=== PATIENT | female | born 1970 | race African-American/Black ===

== ENCOUNTER 2021-01-17 07:45 | Emergency (ER) | payer MEDICAID, OTHER ==
[~2021-01-17] VITALS: Ht 170.2 cm; Wt 55.0 kg
[2021-01-17] MEDS ORDERED: CEPH500C2 MT (08:20)
[2021-01-17] MEDS ORDERED: PHEN-815 MT (08:20)
[2021-01-17] MEDS ORDERED: IBUPROFEN 600MG TABLET PO ONE (08:45)
[2021-01-17 08:59] VITALS: BP 108/40
[2021-01-17 09:30] LABS: CLARITY URINE CLOUDY (CLEAR); COLOR URINE YELLOW (YELLOW); KETONES URINE NEGATIVE (NEGATIVE); LEUKOCYTE ESTERASE URINE 3+ (NEGATIVE); NITRITE URINE NEGATIVE (NEGATIVE); OCCULT BLOOD URINE 2+ (NEGATIVE); PH URINE >=9.0 (4.5-8.0); PROTEIN URINE 1+ (NEGATIVE); SPECIFIC GRAVITY URINE 1.015 (1.005-1.030)
== END 2021-01-17 09:42 | disposition home or self-care (01) ==
LOC: ER 07:45
DX: N39.0 Urinary tract infection, site not specified (principal)
CPT/HCPCS: 81003; 99283

== ENCOUNTER 2021-02-23 18:28 | Emergency (ER) | payer MEDICAID ==
[~2021-02-23] VITALS: Ht 170.2 cm; Wt 56.0 kg
[~2021-02-23 18:28] MED LIST: CEPH500C2 MT; PHEN-815 MT
[2021-02-23 18:31] VITALS: BP 112/77
== END 2021-02-23 18:58 | disposition left against medical advice (07) ==
LOC: ER 18:28
DX: Z53.21 Procedure and treatment not carried out due to patient leaving prior to being seen by health care provider (principal)

== ENCOUNTER 2021-03-18 23:21 | Emergency (ER) | payer MEDICAID, OTHER ==
[~2021-03-18] VITALS: Ht 167.6 cm; Wt 57.0 kg
[2021-03-19] MEDS ORDERED: FLUORESCEIN SODIUM 1MG/STRIP LEFTEYE ONE (01:15)
[2021-03-19] MEDS ORDERED: TETANUS, DIPHTHERIA, PERTUSSIS VAC/PF 0.5ML (>10YR OLD) IM ONE (01:15)
[2021-03-19] MEDS ORDERED: TETRACAINE 0.5% OPHTH DROPS 4ML LEFTEYE ONE (01:15)
[2021-03-19] MEDS ORDERED: ACETAMINOPHEN 325MG TABLET PO ONE (02:00)
[2021-03-19] MEDS ORDERED: SULF15DR26 RIGHTEYE (04:17)
[2021-03-19] MEDS ORDERED: ACET-2708 MT (04:17)
[2021-03-19 04:43] VITALS: BP 138/78
== END 2021-03-19 04:45 ==
LOC: ER 23:21
DX: S92.352A Displaced fracture of fifth metatarsal bone, left foot, initial encounter for closed fracture (principal); S05.31XA Ocular laceration without prolapse or loss of intraocular tissue, right eye, initial encounter; H11.31 Conjunctival hemorrhage, right eye; Z79.899 Other long term (current) drug therapy; V49.88XA Car occupant (driver) (passenger) injured in other specified transport accidents, initial encounter; Y93.89 Activity, other specified; Y92.89 Other specified places as the place of occurrence of the external cause; Y99.8 Other external cause status
CPT/HCPCS: 70486; 73630; 90471; 90715; 99285

== ENCOUNTER 2025-03-26 10:51 | Emergency (ER) | payer MEDICAID, OTHER ==
[~2025-03-26] VITALS: Ht 172.7 cm; Wt 70.0 kg
[~2025-03-26 10:51] MED LIST changes: +ACET-2708 MT; +SULF15DR26 RIGHTEYE
[2025-03-26 10:56] VITALS: O2SAT 100
[2025-03-26 12:57] LABS: BASOPHILS % 0.9 % (0.0-2.0); EOSINOPHILS % 0.2 % (0.0-5.0); HEMATOCRIT. 36.5 % (36.0-48.0); HEMOGLOBIN. 11.9 g/dL (12.0-16.0); LYMPHOCYTES % 55.4 % (20.0-50.0); MEAN PLATELET VOLUME 7.4 fl (7.4-10.4); MONOCYTES % 4.9 % (2.0-8.0); NEUTROPHILS % 38.6 % (40.0-76.0); PLATELET 418 x1000/uL (130-400); RED BLOOD CELL COUNT 3.57 mill/uL (4.2-5.4); RED CELL DISTRIBUTION WIDTH 17.3 % (11.6-14.6)
[2025-03-26 13:12] LABS: CREATININE 0.7 mg/dL (0.6-1.0); UREA NITROGEN BLOOD 10 mg/dL (9-23)
[2025-03-26] MEDS ORDERED: IBUP-2028 MT (14:04)
[2025-03-26] MEDS ORDERED: HYDR10TA34 MT (14:04)
[2025-03-26 14:17] VITALS: BP 128/62; PULSE 90; RESP 17; TEMP 36.7; O2SAT 100
== END 2025-03-26 14:18 | disposition home or self-care (01) ==
LOC: ER 11:02
DX: F41.9 Anxiety disorder, unspecified (principal); I10 Essential (primary) hypertension; Z79.899 Other long term (current) drug therapy
CPT/HCPCS: 36415; 80048; 85025; 93005; 99284